=== PATIENT | male | born 2005 | race Caucasian/White ===

== ENCOUNTER 2025-05-13 14:01 | Outpatient (AMB) | payer OTHER, SELFPAY ==
--- NOTE | 2025-05-13 13:54 | A.OFFPC_ITS ---
Vital Signs 05/13/25 14:05 Height 5 ft 9.53 in Weight 161 lb 4 oz BMI 23.4 BP 132/74 Blood Pressure Location Lt brachial Position Sitting Pulse 82 Pulse Source Pulse Oximeter Temp 97.3 F Temp Source Temporal Artery Scan Pulse Oximetry (%) 99 Oxygen Delivery Method Room Air Intake Visit Reasons: Establish Care Accompanied by: Self / Same As Patient Allergies No Known Allergies Allergy (Verified 05/13/25 14:27) Medication List - Last Reconciled 05/13/25 by Leela Pederson PA-C No Known Home Meds Tobacco use date assessed: 05/13/25 Dental Screening Dental Screen Date: 05/13/25 Did you have a dental visit in the last 12 months?: Yes Was dental information given to patient?: Patient has dentist HPI Establish Care HPI Details The patient is a 19-year-old male presenting for a new patient appointment, annual physical exam and preventative care. He has no significant past medical history and is not currently on any medications. He was previously under the care of a pocketed spring assembler at [facility] but does not recall the specific physician's name. The patient reports having had a physical examination last year, although the exact timing is uncertain. He is due for a comprehensive physical examination, which will include various blood tests and screenings as part of preventative care. 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 He denies any tobacco use and reports occasional alcohol consumption, primarily in social settings with family. He is not currently sexually active and has no history of sexually transmitted diseases. The patient has no family history of colon, breast, prostate, or skin cancer. He denies any symptoms such as chest pain, dyspnea, leg swelling, or changes in bowel habits. Social History - Education: Currently enrolled at [employer] studying popexpert - Substance Use: Denies tobacco use, occ asional alcohol consumption in social settings - Sexual Activity: Not currently sexuall y active, no history of sexually transmitted diseases [facility] Medical History (Updated 05/13/25 @ 15:29 by Leela Pederson PA-C) Annual physical exam Family History Mother No problems noted. Father No problems noted. Social History Housing: Other Housing Other:: Dorm at [facility] Patient Tobacco Use Status: Never used Tobacco e-Cigarette/Vaping Use: Never Used service: No Current occupational status: employed and student Cognitive needs: No Hearing needs: No Vision needs: No Questionnaire PHQ-9 Over the last 2 weeks, how often have you been bothered by any of the following problems? 1. Little interest or pleasure in doing things: not at all 2. Feeling down, depressed, or hopeless: not at all 3. Trouble falling or staying asleep, or sleeping too much: not at all 4. Feeling tired or having little energy: not at all 5. Poor appetite or overeating: not at all 6. Feeling bad about yourself - or that you are a failure or have let yourself or your family down: not at all 7. Trouble concentrating on things, such as reading the newspaper or watching television: not at all 8. Moving or speaking so slowly that other people could have noticed. Or the opposite - being so fidgety or restless that you have been moving around a lot more than usual: not at all 9. Thoughts that you would be better off or of hurting yourself in some way: not at all Total score: 0 Depression Screening Interpretation: Negative Depression Screening Done: Yes 74350 - PHQ-9 Billing: Yes Source: Developed by Drs. Oscar Eagle, Milla Hall, Armani Dean and colleagues, with an educational alexa from [employer]. Thrive Questionnaire Date Thrive assessed: 05/13/25 I am a: Patient What is your living situation today?: I have a steady place to live Within the past 12 months, did the food you bought not last and you didn't have the money to get more?: Never true Within the past 12 months, did you worry whether your food would run out before you got money to buy more?: Never true Do you have trouble paying for medicines?: No Do you have trouble getting transportation to medical appointments?: No Do you have trouble paying your heating and electricity bill?: No Do you have trouble taking care of your child, family member or friend?: No Do you have trouble with day-to-day activities such as bathing, preparing meals, shopping, managing finances, etc.?: No Are you currently unemployed and looking for a job?: No Are you interested in more education?: No Please select the resources that you would like help with: None THRIVE Score: 0 AUDIT C Alcohol Use Questionnaire (AUDIT-C) 1. How often do you have a drink containing alcohol?: Never Total Score: 0 Score Reviewed/Action Taken: No TRACY-7 AMB Questionnaire TRACY-7 Date TRACY - 7 assessed: 05/13/25 Feeling nervous, anxious, or on edge: 0 = Not at all Not being able to stop or control worryin = Not at all Worrying too much about different things: 0 = Not at all Trouble relaxin = Not at all Being so restless that it is hard to sit still: 0 = Not at all Becoming easily annoyed or irritable: 0 = Not at all Feeling afraid as if something awful might happen: 0 = Not at all Total TRACY-7 score (0-4 normal; 5-9 mild; 10-14 moderate; 15-21 severe): 0 Source: Developed by Drs. Oscar Eagle, Milla Hall, Armani Dean and colleagues, with an educational alexa from [employer]. TRACY-7 Assessment Billing TRACY-7 Assessment Tool: TRACY-7 Assessment 43115 Review of Systems Const Details: - General: Denies unintentional weight loss - Cardiovascular: Denies chest pain, dyspnea, or leg swelling - Gastrointestinal: Denies changes in bowel habits or black/bloody stools - Genitourinary: Denies blood in urine or urinary symptoms - Neurological: Denies anxiety or depression - Dermatological: Denies skin lesions or rashes All systems reviewed & are unremarkable except as noted in HPI and below Physical exam (Primary Care) Vital Signs: Last Vital Signs Temp 97.3 F 05/13/25 14:05 Pulse 82 05/13/25 14:05 BP 132/74 05/13/25 14:05 Pulse Ox 99 05/13/25 14:05 Oxygen Delivery Method Room Air 05/13/25 14:05 Care Plan Goal for BP management: <140/90 at Goal BMI result Body Mass Index 23.4 Tobacco/Smoking Status: Tobacco use Status Tobacco use date assessed 05/13/25 05/13/25 13:56 Patient Tobacco Use Status Never used Tobacco 05/13/25 13:56 e-Cigarette/Vaping Use Never Used 05/13/25 14:09 PHQ-9: PHQ-9 Score PHQ-9: Total score 0 05/13/25 14:13 Depression Screening Interpretation: Negative Thrive Assessment: Date of Thrive Assessment Date Thrive assessed 05/13/25 05/13/25 13:58 Const Other: Appearance: Alert. Oriented X3. No acute distress. Head: Normal external exam. Normocephalic. Atraumatic. Eyes: Pupils are equal, round, and reactive to light. Extraocular movements intact. Conjunctiva and sclera normal. Eyelids normal. Ears: External auditory canal normal. Tympanic membranes normal. Throat: Pharynx normal. Uvula midline. Moist mucous membranes. Neck: Normal inspection. Neck supple. Full range of motion. No adenopathy. Thyroid Normal. No meningeal signs. No neck mass noted. Cardiovascular: Normal heart rate and rhythm. Heart sound normal. No murmurs noted. Pulses normal throughout. Respiratory: No respiratory distress. Painless inspiration. Breath sounds normal. No wheezes/rales/rhonchi noted. Chest nontender. No accessory muscle usage noted or decreased air movement noted. Abdomen: Soft and nontender. Bowel sounds normal in all 4 quadrants. No diste ntion noted. No organomegaly noted. No visible injury noted. Back: No costovertebral angle tenderness. Full range of motion noted. Skin: Skin warm and dry. Normal skin color. Normal skin turgor. No ra shes/lesions/lacerations noted. Extremities: No lower extremity edema. Extremities exhibit normal range of motion. Extremities nontender. Neuro: Oriented X 3. No motor deficit. No sensory deficit. Reflexes normal. Office Procedures Flu Questionnaire Does the patient have a severe egg allergy?: No Does the patient have severe life threatening allergies?: No Does the patient have a fever or illness today?: No Has the patient ever had Guillain-[place] Syndrome?: No Has the patient ever had any past reaction to a flu shot?: No Immunizations Fluarix [id number] (PF) 45 mcg (15 mcg x 3)/0.5 mL IM syringe Performing Provider: Leela Pederson PA-C [facility] Administered by: Kacy Farley CMA on 05/13/25 14:13 Dose Route Admin Location Dispensed Lot Number Expiration Date NDC Jet Piercer Operator 0.5 mL IM Left Deltoid 0.5 mL [id number] 01/17/26 [id number] [employer] VIS Given Date VIS Provided VIS Publication Date 05/13/25 Single Vaccine 24 Eligibility Eligibility Date Funding Source Not [facility] Eligible 05/13/25 Private Coding Level of Care Code New Pt Level 4 (16035) New Pt Prev Care 18-39yr(58865 Diagnoses Annual physical exam Z00.00 Additional Codes PHQ-9 - 50866 - PHQ-9 Billing: Yes ([id number]) TRACY-7 Assessment Billing - TRACY-7 Assessment Tool: TRACY-7 Assessment 22925 ([id number]) Time Spent (min) 45 Assessment & Plan Assessment & Plan (1) Annual physical exam: Code(s): Z00.00 - Encounter for general adult medical examination without abnormal findings Category: Medical Plan: The patient will undergo comprehensive blood work including CBC, CMP, inflammatory markers, magnesium, liver function, cholesterol, hemoglobin A1c, PSA, thyroid function, urine analysis, vitamin B12, and vitamin D. He has been advised to fast for 10 to 12 hours prior to the blood draw. The patient received an influenza vaccination during the visit. He will sign a medical release form to obtain previous medical records from [facility]. Plan Plan Patient was informed and verbally consented to the use of an ambient scribe for clinic note documentation during this visit. 1. Preventative Care The patient will undergo comprehensive blood work including CBC, CMP, inflammatory markers, magnesium, liver function, cholesterol, hemoglobin A1c, PSA, thyroid function, urine analysis, vitamin B12, and vitamin D. He has been advised to fast for 10 to 12 hours prior to the blood draw. The patient received an influenza vaccination during the visit. He will sign a medical release form to obtain previous medical records from [facility]. During the visit, I discussed the importance of preventative care with the patient, including the need for comprehensive blood work to assess overall health status. I explained the necessity of fasting for accurate blood test results and provided instructions for obtaining the tests at any convenient location. We also discussed the influenza vaccination, which the patient received during the visit. The patient agreed to sign a medical release form to facilitate the transfer of previous medical records from [facility]. Orders: Orders Influenza [id number] Immunization Today Z23 - Encounter for immunization Complete Blood Count Auto Diff Today Z00.00 - Encounter for general adult medical examination without abnormal findings Comprehensive [place]. Panel Fast Today Z00.00 - Encounter for general adult medical examination without abnormal findings Erythrocyte Sedimentation Rate Today Z00.00 - Encounter for general adult medical examination without abnormal findings Liver Panel Today Z00.00 - Encounter for general adult medical examination without abnormal findings Lipid Panel Today Z00.00 - Encounter for general adult medical examination without abnormal findings PSA,Total (Free>4and<10) Today Z00.00 - Encounter for general adult medical examination without abnormal findings Vitamin B12 and Folate Today Z00.00 - Encounter for general adult medical examination without abnormal findings C Reactive Protein Today Z00.00 - Encounter for general adult medical examination without abnormal findings Magnesium Today Z00.00 - Encounter for general adult medical examination witho ut abnormal findings Hemoglobin A1c Today Z00.00 - Encounter for general adult medical examination without abnormal findings TSH reflex Free T4 Today Z00.00 - Encounter for general adult medical examination without abnormal findings UA CC w/rflx Micro + Cult Today Z00.00 - Encounter for general adult medical examination without abnormal findings Vitamin D 25-OH Total Today Z00.00 - Encounter for general adult medical examination without abnormal findings Patient Instructions: - Fast for 10 to 12 hours before blood work. - Visit any convenient location for blood tests, no appointment needed. - Sign the medical release form for previous records from [facility]. - Return annually for a wellness exam.
[2025-05-13 14:05] VITALS: BP 132/74; PULSE 82; TEMP 36.3; O2SAT 99; BMI 23.4
--- OUTSIDE RECORDS SUMMARY | 2025-05-13 16:04 | XMS_ITS | Encounter Summary ---
Author Organization [facility] Address [address] [place] [phone] Phone Care Team Providers Care Candle Molder Hand Name Role Phone Nathalia Watkins NP Primary Care Provider Encounter Details Date Type Department Care Team (Late st Contact Info) Description 03/06/2017 Conversion Encounter [facility] [address] [place] [address] Social History Tobacco Use Types Packs/Day Years Used Date Smoking Tobacco: Never Assessed Sex and Gender Information Value Date Recorded Sex Assigned at Male 08/22/2020 3:03 PM EST Legal Sex Male 5:16 PM EDT Gender Identity Male 08/22/2020 3:03 PM EST Sexual Orientation Straight 06/06/2023 11 :19 AM EST documented as of this encounter Plan of Treatment Not on file documented as of this encounter Visit Diagnoses Not on filedocumented in this encounter Care Teams Candle Molder Hand Relationship Specialty Start Date End Date Nathalia Watkins NP [address] [place] [address] PCP - General Pediatrics 12/16/24 12/21/24 documented as of this encounter
--- OUTSIDE RECORDS SUMMARY | 2025-05-13 16:04 | XMS_ITS | Clinical Summary ---
Author Organization [facility] Address [address] [place] [phone] Phone Care Team Providers Care Client Services Specialist Name Role Phone Unavailable Primary Care Provider Unavailabl e Allergies No known active allergies Medications No known medications Active Problems Problem Noted Date Diagnosed Date Acne vulgaris 06/06/2023 Overview (06/08/2023): Has mild comedogenic acne, partly from rubbing forehead Assessment & Plan (06/06/2023 11:40 AM EST): Wash face twice a day. Use benzaclin in am, retin a at night. Try not to rub your face. Learning difficulty 10/24/2016 Overview (08/20/2019): Has an IEP at school. Assessment & Plan (06/08/2023 11:21 AM EST): Doing well in college. 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 Attention deficit hyperactiv ity disorder (ADHD), combined type 06/27/2016 Overview (07/16/2017): No meds Assessment & Plan (06/06/2023 11:36 AM EST): Does not need meds. Has trouble focusing on homework. Would suggest no artificial food colorings, develop a homework plan. Read: [employer] Delivered from [employer]. Assessment & Plan (09/04/2021 3:55 PM EST): Continues to do well on no eds Assessment & Plan (02/09/2021 12:45 PM EDT): Has not taken meds in the past Treatment for ADHD discussed and at this time Pedro Luis not interested. It does seem that Marybeth parents provide good structure for Pedro Luis and that if/when they withdraw some of these supports Pedro Luis might become more motivated/ interested in medication. To follow up as needed Assessment & Plan (08/22/2020 2:55 PM EST): Doing well with IEP. Assessment & Plan (08/14/2018 2:23 PM EST): Doing well on no meds. Continues with IEP support at school. Assessment & Plan (07/16/2017 9:02 AM EST): Pedro Luis is doing well with his IEP and is not on medication. Autism spectrum disorder 06/08/2015 Overview (06/08/2023): Neg Fragile X screening IEP Does well in school : is high functioning, fits with former dx of Asperger's, discussed dx with him, concentrating on his strengths. Assessment & Plan (06/06/2023 11:36 AM EST): Check out Autism Connections. The [employer] Guide to Social connections. Assessment & Plan (09/04/2021 3:55 PM EST): stable Assessment & Plan (02/09/2021 12:43 PM EDT): Pedro Luis here with his parents. Dx of autism and ADHD Parents concerned about Marybeth ability to do school independently once he goes to college. Pedro Luis wants to start at community college and wants to study computers. Parents feel that he is bright but is not motivated to get his homework done. They are concerned that he will not do well in college. Note sent to care coordinators re support services available as family transitions towards more independence for Pedro Luis. Will refer for neuropsych testing to look at strengths and weakness re social functioning and future independence. Treatment for ADHD discussed and at this time Pedro Luis not interested. It does seem that Marybeth parents provide good structure for Pedro Luis and that if/when they withdraw some of these supports Pedro Luis might become interested in medication. Assessment & Plan (08/22/2020 3:00 PM EST): Has IEP Assessment & Plan (08/14/2018 2:25 PM EST): Has good supports at school. 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 Counseling and coordination of care 02/08/2021 08/17/2021 Generalized anxiety disorder 10/24/2016 08/20/2019 Overview (08/20/2019): Much better at a new school Assessment & Plan (08/20/2019 2:25 PM EST): Mild intermittent anxiety. No acute concerns Assessment & Plan (08/14/2018 2:25 PM EST): Under good control. Much better at a new school. Immunizations Immunization Administration Dates Next Due COVID-19 Vaccine Moderna, se asonal, 12+ years 06/06/2023 DTaP 5 12/28/2007, 5,06/08/2004,04/12,02/09/2004 HPV Vaccine 9 Valent 06/27/2016,02/01/2016,05/18 Hep A, ped/adol 05/18/2015,05/12/2014 Hep B, ped/adol 09/13/2004,06/08/2004,2003 Hib (HbOC) 03/18/2005, 4,04/12/2004,02/08 IPV 12/28/2007, 5,04/12/2004,02/08 Influenza Split 05/29/2010 Influenza, injectable, MDCK, preservative free, quadrivalent 05/16/2020,05/28/2018,05/13/2017,05/09 Influenza, injectable, quadrivalent 05/16/2020,1 ,05/18/2015 Influenza, injectable, quadr ivalent, preservative free 06/06/2023 Influenza, injectable, trivalent 05/22/2005,08/22,06/08/2004 Influenza, intranasal, quadrivalent 05/12/2014,1 Influenza, intranasal, trivalent 04/23/2012,03/22,04/10/2010 MMR 12/28/2007,12/10/2004 Meningococcal B Trumenba 06/06/2023,09/04/2021 Meningococcal Conj (Menactra) MCV4P 08/22/2020,1 Pneumococcal Conjugate 03/18/2005,2003,04/12/2004,02/08 Tdap 06/20/2019,05/18/2015 Varicella 12/28/2007,12/10/2004 Family History Medical History Relation Name Comments No Known Problems Father Pato No Known Problems Maternal Grandfather No Known Problems Maternal Grandmother No Known Problems Mother Ashlee Diabetes Paternal Grandfather No Known Problems Sister Dalila Relation Name Status Comments Father Pato Alive Maternal Grandfather Alive Maternal Grandmother Alive Mother Ashlee Alive Other 1 Alive grandparents: A live and well Other 2 No family histo ry of Developmental dislocation of hip, No family history of Cancer, No family history of Diabetes mellitus, No family history of ADD/ADHD, No family history of Seizure disorder, No family history of Asthma, No family history of Migraines, No family history of *Heart Disease, No family history of *Thrombophilia, No family history of *CVA/Stroke, No family history of Obesity, No family history of Deafness, Family history of Hyperlipidemia Paternal Grandfather Alive Paternal Grandmother Alive Sister Dalila Alive Sister: Alive a nd well Social History Tobacco Use Types Packs/Day Years Used Date Smoking Tobacco: Never Smokeless Tobacco: Never Tobacco Cessation:Counseling Given: Yes Comments:not a smoker Alcohol Use Standard Drinks/Week Comments Never 0 (1 standard drink = 0.6 oz pur e alcohol) Hunger/Food Answer Date Recorded In the last 12 months, did y ou or your family ever eat less than you felt you should because there wasn't enough money for food? No 06/06/2023 Stable Housing Answer Date Recorded Are you worried that in the next 2 months you may not have stable housing? No 06/06/2023 Transportation Concerns Answer Date Rec orded In the last 12 months, have you or your family ever had to go without healthcare because you didn't have a way to get there? No 06/06/2023 Hazards in Home Answer Date Recorded Think about the place you li ve. Do you have problems with any of the following? Pests (mice or roaches), mold, no/not working smoke detectors, water leaks, no window guards. No 2022 Financing Utilities Answer Date Recorde d In the last 12 months, has t he electric, gas, oil, or water company threatened to shut off your services in your home? No 06/06/2023 Safety at Home Answer Date Recorded Are you or your family worried about feeling saf e in your home? No 06/06/2023 Outside Support Answer Date Recorded Do you feel that you need mo re support from other people or programs to help you care for yourself or your family? No 06/06/2023 Understanding Health Concerns Answer Da te Recorded Do you need help understandi ng your or your child's healthcare needs (diagnosis, medications, plan, etc.)? No 06/06/2023 Financing Health Concerns Answer Date R ecorded In the last 12 months, was t here a time when your child needed to see a doctor or get medications or supplies but could not because of cost? No 06/06/2023 Missing School or Work Answer Date Kevin rded Did you or your child miss s chool or work because of a health problem that could have been avoided? No 06/06/2023 Sex and Gender Information Value Date Recorded Sex Assigned at Male 08/22/2020 3:03 PM EST Legal Sex Male 5:16 PM EDT Gender Identity Male 08/22/2020 3:03 PM EST Sexual Orientation Straight 06/06/2023 11 :19 AM EST Last Filed Vital Signs Vital Sign Reading Time Taken Comments Blood Pressure 127/74 06/06/2023 11:05 AM EST Pulse 73 06/06/2023 11:05 AM EST Temperature 36.2 C (97.2 F) 09/04/2021 3:33 PM EST Respiratory Rate - - Oxygen Saturation - - Inhaled Oxygen Concentration - - Weight 73.8 kg (162 lb 12.8 oz) 023 11:05 AM EST Height 174.6 cm (5' 8.75 ) 06/06/2023 1 1:05 AM EST Body Mass Index 24.22 06/06/2023 11:05 AM EST Plan of Treatment Health Maintenance Due Date Last Done Comments Influenza Vaccines (#1) 2025 06/06/20, 04/27/2022, 04/21/2021, Additional history exists COVID-19 Vaccine (2024-2 6 season) 2025 06/06/2023, 07/20/2021, 12/14/2020, Additional history exists DTaP,Tdap,and Td Vaccines (8 - Td or Tdap) 06/20/2029 06/20/2019, 05/18/2015, 12/28/2007, Additional history exists Hepatitis B Vaccines Completed 09/13/2004, 06/08/2004, 2003 HIB Vaccines Completed 03/18/2005, 05/21, 04/12/2004, Additional history exists Pneumococcal Vaccine Completed 03/18/2005, 06/08/2004, 04/12/2004, Additional history exists IPV Vaccines Completed 12/28/2007, 08/22, 04/12/2004, Additional history exists MMR Vaccines Completed 12/28/2007, 12/10/2004 Varicella Vaccines Completed 12/28/2007, 12/10/2004 Hepatitis A Vaccines Completed 05/18/2015, 05/12/20 14 HPV Vaccines Completed 06/27/2016, 01/18, 05/18/2015 Meningococcal Vaccine Completed 08/22/2020, 015 Men B Vaccine Completed 06/06/2023, 09/04/2021
--- OUTSIDE RECORDS SUMMARY | 2025-05-13 16:05 | XMS_ITS | Encounter Summary ---
Author Organization [facility] Address [address] [place] [phone] Phone Care Team Providers Care Database Marketing Manager Name Role Phone Nathalia Watkins NP Primary Care Provider [phone] Encounter Details Date Type Department Care Team (Late st Contact Info) Description 07/29/2016 Documentation [facility] [facility] [address] [place] [address] Family Medicine, Physician [address] [id number] Social History Tobacco Use Types Packs/Day Years [...] on filedocumented in this encounter Care Teams Database Marketing Manager Relationship Specialty Start Date End Date Nathalia Watkins NP [address] [place] [phone] PCP - General Pediatrics 12/16/24 12/21/24 documented as of this encounter
== END 2025-05-13 14:39 | disposition home or self-care (01) ==
PROVIDERS: PCP Physician Assistant Medical; Visit Provider Physician Assistant Medical
DX: Z00.00 Encounter for general adult medical examination without abnormal findings (principal); Z23 Encounter for immunization

== ENCOUNTER → 2025-05-13 14:01 | Outpatient (BNVA) | payer OTHER, SELFPAY | PROVIDERS: PCP Physician Assistant Medical; Visit Provider Physician Assistant Medical | DX: Z23 Encounter for immunization (principal); Z13.31 Encounter for screening for depression; Z13.39 Encounter for screening examination for other mental health and behavioral disorders | CPT/HCPCS: 90471; 90656; 96127 ==

== ENCOUNTER 2025-07-05 11:47 | Outpatient (AMB) | payer OTHER, SELFPAY ==
[2025-07-05 11:49] VITALS: BP 110/68; PULSE 96; TEMP 37.2; O2SAT 98; BMI 23.9
--- NOTE | 2025-07-05 11:49 | AM.OFFWIN_ITS ---
Intake Vital Signs 07/05/25 11:49 Height 5 ft 9.5 in Weight 164 lb BMI 23.9 BP 110/68 Blood Pressure Location Lt brachial Position Sitting Pulse 96 Pulse Source Pulse Oximeter Temp 98.9 F Temp Source Oral Pulse Oximetry (%) 98 Oxygen Delivery Method Room Air Intake Visit Reasons: EP-sore throat, chest congestion, cough, fever Intake Note: pt presents with sore throat, chest congestion with mostly dry coughing and fevers beginning yesterday Patient Tobacco Use Status: Never used Tobacco Allergies No Known Allergies Allergy (Verified 07/05/25 11:52) Do you need a note to return to daycare/school/sports/work: Yes HPI HPI Comments History of Present Illness Details History - The patient is a 19 year old male who presents with symptoms that started yesterday. - He reports symptoms of fever up to 101 ?F, cough, low energy, and mild congestion. - He denies runny nose, head congestion, sinus pain, ear pain, shortness of breath, or trouble breathing. - A home rapid COVID-19 test was negativ e. - He has not taken any ecuj-kxo-jipghei medications. - No one else at home is sick. - He has no history of asthma or COPD an d denies smoking or vaping. Review of Systems - Constitutional: Reports fever up to 10 1?F and low energy. - Respiratory: Reports cough, mild conge stion, and a feeling of tightness that makes it difficult to take deep breaths. - Denies shortness of breath or trouble breathing. - HEENT: Denies runny nose, sinus pain, and ear pain. All systems reviewed and are unremarkable except as noted in HPI Physical Exam General: Cooperative, healthy appearing, comfortable and no acute distress Orientation/consciousness: Patient oriented x3 Limitations: No limitations Head: Normal to inspection Ears: Hearing grossly normal bilaterally, external ears normal, EAC's normal bilaterally and TM's normal bilaterally Nose: Normal external nose present, Normal nares present and No nasal discharge present Face and sinus: Normal facial exam and sinuses nontender Mouth: Normal oral and palatal mucosa present and moist mucous membranes Throat: tonsils normal, no exudates, uvula midline, posterior oropharynx erythema Eyes: Appearance normal, both eyes and all related structures Neck: Normal visual inspection, full ROM Respiratory: Clear to auscultation bilaterally. Normal respiratory effort, able to speak in complete sentences, actively coughing, no respiratory distress, not tachypneic, no tripod positioning and no use of accessory muscles. Breaths are not as deep as they could be, feels tight. Cardiovascular: Regular rate and rhythm. Normal S1 and S2 Skin: No rashes or lesions noted Neuro: Patient oriented x3 Extremities: Normal to inspection and Yes no clubbing, cyanosis or edema [facility] Medical History (Updated 07/05/25 @ 12:06 by Winter Graves PA-C) Annual physical exam Family History Mother No problems noted. Father No problems noted. Social History Housing: Other Housing Other:: Dorm at [facility] Patient Tobacco Use Status: Never used Tobacco e-Cigarette/Vaping Use: Never Used service: No Current occupational status: employed and student Cognitive needs: No Hearing needs: No Vision needs: No Physical Exam Vital Signs: Last Vital Signs Temp 98.9 F 07/05/25 11:49 Pulse 96 07/05/25 11:49 BP 110/68 07/05/25 11:49 Pulse Ox 98 07/05/25 11:49 Oxygen Delivery Method Room Air 07/05/25 11:49 BMI result Body Mass Index 23.9 Assessment & Plan Assessment & Plan (1) URI, acute: Code(s): J06.9 - Acute upper respiratory infection, unspecified Plan: Patient was informed and verbally consented to the use of an ambient scribe for clinic note documentation during this visit. Acute Viral Upper Respiratory Infection - VSS, pt well appearing and PE unremarkable. - A swab for influenza, COVID-19, and RSV was performed; results are pending and will be communicated. - Prescribed an inhaler to be used as two puffs every 4-6 hours as needed for shortness of breath or chest tightness to help him breathe easier. - Recommended nrqo-jse-koparjo Tylenol for fever and a decongestant such as Mucinex. - Advised on supportive care measures including rest, hydration, saline nasal spray, a humidifier, and throat lozenges. - Patient was educated on return precautions, including worsening shortness of breath or a high fever that does not resolve with Tylenol. Gave patient [facility] handout for viral common cold. - A work excuse note will be provided for today and tomorrow. Orders: Orders SARS-CoV2/FLU/RSV Today R09.89 - Other specified symptoms and signs involving the circulatory and respiratory systems Medications: New albuterol sulfate 90 mcg/actuation 2 puffs inhalation Q6H PRN 8.5 grams 0RF shortness of breath or wheezing or cough Coding Level of Care Code Est Pt Level 3 (68965) Diagnoses URI, acute J06.9
--- OUTSIDE RECORDS SUMMARY | 2025-07-05 15:34 | XMS_ITS | Encounter Summary ---
Author Organization [facility] Address [address] [place] [phone] Phone Care Team Providers Care Parent Partner Name Role Phone Nathalia Watkins NP Primary Care Provider [phone] Encounter Details Date Type Department Care Team (Late st Contact Info) Description 03/06/2017 Conversion Encounter [facility] [address] [place] [address] Social History Tobacco Use Types Packs/Day Years [...] on filedocumented in this encounter Care Teams Parent Partner Relationship Specialty Start Date End Date Nathalia Watkins NP [address] [place] [address] PCP - General Pediatrics 12/16/24 12/21/24 documented as of this encounter
--- OUTSIDE RECORDS SUMMARY | 2025-07-05 15:34 | XMS_ITS | Clinical Summary ---
Author Organization [facility] Address [address] [place] [phone] Phone Care Team Providers Care Advanced Manufacturing Associate Name Role Phone Unavailable Primary Care Provider [...] AM EST): Check out [employer]. [employer] Guide to Social connections. Assessment & Plan [...]
--- OUTSIDE RECORDS SUMMARY | 2025-07-05 15:34 | XMS_ITS | Encounter Summary ---
Author Organization [facility] Address [address] [place] [phone] Phone Care Team Providers Care Oyster Grader Name Role Phone Nathalia Watkins NP Primary Care Provider [phone] Encounter Details Date Type Department Care Team (Late st Contact Info) Description 07/29/2016 Documentation [facility] [place] [address] [place] [address] Family Medicine, Physician [address] [place] [id number] Social History Tobacco Use Types Packs/Day Years [...] on filedocumented in this encounter Care Teams Oyster Grader Relationship Specialty Start Date End Date Nathalia Watkins NP [address] [place] [phone] PCP - General Pediatrics 12/16/24 12/21/24 documented as of this encounter
== END 2025-07-05 12:12 | disposition home or self-care (01) ==
PROVIDERS: PCP Physician Assistant Medical; Visit Provider Physician Assistant
DX: J06.9 Acute upper respiratory infection, unspecified (principal)

== ENCOUNTER 2025-07-05 11:47 | Outpatient (REF) | payer OTHER, SELFPAY ==
[2025-07-05 15:12] LABS: Resp Syncy Virus RNA Qual PCR NEGATIVE (Negative); SARS COV2 PCR INHOUSE NEGATIVE (Negative)
== END 2025-07-05 11:48 | disposition home or self-care (01) ==
LOC: HO.LNP 11:47
PROVIDERS: Physician Assistant; PCP Physician Assistant Medical
DX: J06.9 Acute upper respiratory infection, unspecified (principal); R09.89 Other specified symptoms and signs involving the circulatory and respiratory systems
CPT/HCPCS: 87637; 99212